=== PATIENT | male | born 1950 | race African-American/Black ===

== ENCOUNTER → 2018-08-13 | Day surgery (SDC) | payer MEDICARE, OTHER ==
[~2018-08-13] MED LIST: AMLO10TA8 PO; ASPI325T8 PO; ATOR20TA58 PO; EPINEPHrine SYRINGE 1 MG/10 ML SYRINGE ONE; HYDR-2145 PO; IV RINGERS,LACTATED 1000ML 1,000 ML IV SCH; LIDOCAINE 2% PF 5 ML VIAL. ONE; LOSA-73 PO; OMEP20TA8 PO; PROPOFOL 40 ML IV ONE; TAMS0.4C97 PO
[2018-08-13 12:05] VITALS: BP 124/83
--- NOTE | 2018-08-14 19:06 | PATHOLOGY ---
[facility] Accession Number: [id number] . 01 Material submitted: . PART A: small bowel - SMALL BOWEL BIOPSY PART B: stomach - GASTRIC ANTRUM BIOPSY PART C: esophagus - DISTAL ESOPHAGUS BIOPSY. Modifiers: distal PART D: colon - TRANSVERSE COLON POLYP BIOPSY. Modifiers: transverse PART E: colon - SIGMOID COLON POLYP SNARE. Modifiers: sigmoid . 01 Clinical history: . Pre-OP DX: GERD, screening Post-OP DX: Polyps . 02 Diagnosis: A. Small bowel biopsy: - Gastric heterotopia, focal, with focal mild active chronic inflammation. . B. Gastric biopsies, antrum: - Chronic gastritis, mild. . C. Esophageal biopsies, distal esophagus: - Segments of gastric mucosa showing mild chronic inflammation. . D. Colon biopsies, transverse colon polyp: - Hyperplastic polyp. - Vegetable material. . E. Sigmoid colon polypectomy: - Tubular adenoma showing small foci of high-grade dysplasia. See comment. . (JPM:wilfredo; 08/14/2018) MBR/08/14/2018 . 02 Comment: Sections of the small bowel biopsy reveal segments of duodenal and small intestine mucosa. There is focal gastric heterotopia with focal mild acute and chronic inflammation. Where best oriented, the mucosal villi show no sprue-like changes or significant inflammatory changes. . Sections of the gastric antral biopsy reveal segments of gastric body and antral/body transition mucosa showing congestion and mild chronic inflammation. One of the biopsy segments of gastric mucosa has a contiguous short segment of squamous mucosa. A properly controlled immunoperoxidase stain for Helicobacter is negative for Helicobacter organisms. . Sections of the distal esophageal biopsy reveal segments of gastric mucosa showing mild chronic inflammation. There is no squamous esophageal mucosa. There is no evidence of Orozco's change, dysplasia, or malignancy. . Sections of the transverse colon biopsy reveal a hyperplastic polyp showing coagulation artifact and segments of vegetable material. There are no adenomatous changes or evidence of malignancy. . Sections of the sigmoid colon polypectomy reveal a pedunculated tubular adenoma showing a couple of small foci of high-grade dysplasia. The base of the pedicle is lined by normal colonic mucosa. . (JPM:car conditioner; 08/14/2018) . Special stain performed: Immunoperoxidase stain for Helicobacter on B1. . 02 Electronically signed: . Duke Hernández MD, Pathologist NPI- [id number] . 01 Gross description: . A. Received in formalin labeled "Josh Jt, small bowel BX," are 4 segments of metz soft tissue measuring 1.3 x 0.8 x 0.3 cm in aggregate dimensions and ranging from 0.3 to 0.4 cm in maximum dimension. The specimen is submitted entirely in cassette A1. . B. Received in formalin labeled "MorenoJt, gastric antrum BX," are 2 segments of metz soft tissue measuring 1.2 x 0.3 x 0.3 cm in aggregate dimensions and ranging from 0.5 to 0.7 cm in maximum dimension. The specimen is submitted entirely in cassette B1. . C. Received in formalin labeled "Moreno Jt, distal esophagus BX," is a single segment of metz soft tissue measuring 0.7 cm in maximum dimension. The specimen is entirely submitted in cassette C1. . D. Received in formalin labeled "Jt Moreno, transverse colon polyp, BX," are multiple segments of possible metz soft tissue admixed with vegetative material measuring 2.3 x 0.5 x 0.1 cm in aggregate dimensions. The specimen is filtered and entirely submitted in cassette D1. . E. Received in formalin labeled "Josh Jt, sigmoid colon polyp," and additionally labeled on the requisition as "snare," is a 2.1 x 1.6 x 1.5 cm polypoid piece of metz soft tissue. The margin is inked and the tissue is sectioned perpendicular to the margin and submitted in its entirely in cassette E1 through E3. (TSD; 08/13/2018) TOB/TOB . 02 Pathologist provided ICD-10: K29.50, K20.9, K63.5, D12.5 . 02 CPT . 037496, 177793, 792445, 387981, 260952, [id number] Specimen Comment: A courtesy copy of this report has been sent to Specimen Comment: [phone], . Specimen Comment: Report sent to / DR CADET Performed at: 01 [facility] [address] [id number] MD Porter Gerber MD Phone: [phone] Performed at: 02 [facility] [address] [place], [place] [id number] MD Duke Hernández MD Phone: [phone]
== END | disposition home or self-care (01) ==
LOC: SURG 09:20
PROVIDERS: ATTEND Internal Medicine Gastroenterology
DX: K29.50 Unspecified chronic gastritis without bleeding (principal); K21.0 Gastro-esophageal reflux disease with esophagitis; K63.5 Polyp of colon; K52.9 Noninfective gastroenteritis and colitis, unspecified; D12.5 Benign neoplasm of sigmoid colon; K64.8 Other hemorrhoids; I10 Essential (primary) hypertension; Z82.49 Family history of ischemic heart disease and other diseases of the circulatory system; Z80.0 Family history of malignant neoplasm of digestive organs; Z79.899 Other long term (current) drug therapy; Z98.890 Other specified postprocedural states
CPT/HCPCS: 43239; 45381; 45385; 88305; 88342; J0171; J2001; J2704; 45380; 45382

== ENCOUNTER → 2020-11-02 | Outpatient (CLI) | payer MEDICARE ==
[2018-08-13 12:05] VITALS: BP 124/83
[~2020-11-02] MED LIST changes: +AMLO-187 PO; -AMLO10TA8 PO; -EPINEPHrine SYRINGE 1 MG/10 ML SYRINGE ONE; -IV RINGERS,LACTATED 1000ML 1,000 ML IV SCH; -LIDOCAINE 2% PF 5 ML VIAL. ONE; -PROPOFOL 40 ML IV ONE
--- NOTE | 2020-11-02 15:31 | RAD ---
EXAM: ULTRASOUND ABDOMEN COMPLETE CLINICAL HISTORY: Reason: ELEVATED LFT'S / Spl. Instructions: / History: COMPARISON: None available. TECHNIQUE: Ultrasound of the upper abdomen was performed. FINDINGS: The head and body of the pancreas are unremarkable. The tail is obscured by intestinal gas.. The liver is enlarged, accurate measurement limited given inability to image in one scan zone, measur ing greater than 18 cm. Increased hepatic echogenicity relative to the right kidney consistent with hepatic steatosis. There are no focal liver lesions. Flow seen within the portal veins. The gallbladder is normal in appearance without evidence for cholelithiasis. There is no wall thicke mariluz or pericholecystic fluid. There is no pain with direct transducer pressure over the gallbladder . The common bile duct measures 0.5 cm. The spleen measures 10 cm. The right kidney measures 11.5 cm in bipolar length. Normal renal cortical echotexture and thickness. No focal renal lesion, hydronephrosis or shadowing renal calculus. The left kidney measures 10.4 cm in bipolar length. Normal renal cortical echotexture and thickness. No focal renal lesion, hydronephrosis or shadowing renal calculus. Visualized portions of the abdominal aorta and inferior vena cava are unremarkable. There is no free fluid in the upper abdomen. IMPRESSION: Hepatomegaly and fatty liver. No focal liver lesion. Gallbladder is grossly normal Electronically signed by: London Mock MD (11/02/2020 3:29 PM) [id number]
== END ==
LOC: US 08:03
PROVIDERS: ATTEND Nurse Practitioner Family
DX: R16.0 Hepatomegaly, not elsewhere classified (principal); K76.0 Fatty (change of) liver, not elsewhere classified
CPT/HCPCS: 76700